=== PATIENT | female | born 1960 | race Caucasian/White ===

== ENCOUNTER 2016-11-05 08:25 | Day surgery (SDC) | payer OTHER ==
[~2016-11-05 08:25] MED LIST: LIDOCAINE W/ SODIUM BICARB 0.5 ML SYR ONE; Lactated Ringers 1,000 ML PRIMARY IV ONE
[2016-11-05 08:59] VITALS: RESP 17
--- NOTE | 2016-11-05 10:21 | GEN.OPNOTE ---
EGD / Colonoscopy Report Surgery Date: 11/05/16 Preoperative Diagnosis: Chronic GERD. Personal history of colon polyps. Abdominal pain of unknown etiology. Postoperative Diagnosis: Same. Procedure: #1 esophagogastroduodenoscopy with biopsy. #2 complete colonoscopy. Surgeon: Lucian Bustamante MD Anesthesia Provider: Daria Childs CRNA Anesthesia Type: MAC Indications: See preoperative diagnosis. EGD Findings: Esophagus: [Normal] GE Junction : [Z line is slightly irregular.] Fundus : [Streaks of erythema.] Body : [Normal] Prepyloric : [Erythema] Small Intestine : [Probable duodenitis] A lubricated flexible upper endoscope was inserted and passed through the esophagus and stomach into the duodenum. Duodenum and duodenal bulb showed evidence of duodenitis. Biopsies were taken. Pyloric channel was patent. There was erythema in the antrum as well as possibly a small healed ulceration. Multiple biopsies were taken. Hemostasis was assured. The scope was retroflexed. The fundus of the stomach also showed some streaking erythema. The scope was straightened. Hemostasis was assured. Air was aspirated. The scope was withdrawn into the distal esophagus. Biopsies were taken at and above the Z line. Hemostasis was assured. The scope was withdrawn through the remainder of a normal-appearing esophagus and brought through the hypopharynx under suction completing that portion of the procedure. Colonoscopy Findings: Prep : [Very good] Cecum : [Normal] Ascending : [Normal] Transverse : [Normal] Sigmoid : [Diverticulosis] Rectum : [Normal] Digital Rectal Exam : [Normal with external hemorrhoidal tissue] A lubricated flexible colonoscope was inserted and passed to the blind end of the cecum. The blind end of the cecum, appendiceal orifice, and ileocecal valve were clearly seen. Air was aspirated as the scope was withdrawn. The cecum, ascending colon, hepatic flexure, transverse colon, splenic flexure, and descending colon were all unremarkable. The sigmoid colon showed evidence of moderate diverticulosis. The rectum was unremarkable.. The scope was withdrawn completing the procedure. There were no obvious polyps, tumors, neoplastic masses, infectious or inflammatory processes identified. The scope was withdrawn completing the procedure. Patient tolerated the entire procedure well without complication. She was taken to outpatient surgery in stable condition. We will call the biopsy results when available. Plan follow-up and therapy as indicated. If her bilateral lower quadrant pain persists we will plan CT scan abdomen and pelvis with oral and IV contrast.
[2016-11-05 10:47] VITALS: TEMP 97.1
== END 2016-11-05 10:40 | disposition home or self-care (01) ==
LOC: SDSC 08:25
PROVIDERS: ATTEND Surgery
DX: Z86.010 Personal history of colon polyps (principal); K21.9 Gastro-esophageal reflux disease without esophagitis; R10.9 Unspecified abdominal pain; K31.9 Disease of stomach and duodenum, unspecified
CPT/HCPCS: 43239; 45378; J2704; J7120